=== PATIENT | female | born 1945 | race Caucasian/White ===

== ENCOUNTER → 2020-04-13 | Outpatient (CLI) | payer MEDICARE, OTHER ==
--- NOTE | 2020-04-13 19:44 | RAD ---
EXAM DESCRIPTION: Pelvis CLINICAL HISTORY: 74 years Female, PAIN LEFT HIP COMPARISON: 02/09/2018 TECHNIQUE: Single view radiograph of the left hip. IMPRESSION: Partially obscured sacrum and coccyx by overlying bowel. No acute displaced fracture. No dislocation. 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 Moderate colonic stool. Electronically signed by: Karthik Orozco MD 04/13/2020 7:43 PM CDT
--- NOTE | 2020-04-13 19:44 | RAD ---
EXAM DESCRIPTION: Knee,Left Complete CLINICAL HISTORY: 74 years Female, PAIN IN LEFT KNEE COMPARISON: None. TECHNIQUE: 4 view radiograph of the left knee. IMPRESSION: No acute displaced fracture. No dislocation. Severe joint space narrowing of the medial weightbearing knee compartment. Mild subchondral sclerosis along the medial tibial plateau. Small joint line osteophytes medial laterally. Moderate patellofemoral arthrosis. Small knee joint effusion. Mild lateral patellar tilt but no subluxation. No radiographically apparent soft tissue abnormality. Electronically signed by: Karthik Orozco MD 04/13/2020 7:42 PM CDT
== END ==
LOC: RAD 08:37
PROVIDERS: ATTEND Orthopaedic Surgery
DX: M16.0 Bilateral primary osteoarthritis of hip (principal); M17.12 Unilateral primary osteoarthritis, left knee; M25.862 Other specified joint disorders, left knee; M25.462 Effusion, left knee; M25.762 Osteophyte, left knee